=== PATIENT | female | born 1950 | race Hispanic/Latino ===

== ENCOUNTER 2019-08-17 07:04 | Day surgery (SDC) | payer OTHER ==
--- NOTE | 2019-08-15 16:58 | EKG ---
Test Date: 2019-08-11 Test Time: 16:32:55 [employer]: ED MEASUREMENT RESULTS: Intervals: Rate: 57 CA: 170 QRSD: 98 QT: 412 QTc: 401 [place]: P: 41 CA: 170 QRS: 10 T: 51 INTERPRETIVE STATEMENTS: Sinus bradycardia Inferior infarct, age undetermined Cannot rule out Anterior infarct, age undetermined Abnormal ECG No previous ECG available for comparison Electronically Signed On 08-15-19 16:55:49 CDT by Zachary Samuel
[2019-08-17] MEDS ORDERED: NA CHLORIDE 0.9% 1,000 ML ONE ×2 (07:07→07:20)
[2019-08-17] MEDS ORDERED: LIDOCAINE 2% MPF 5 ML VIAL ONE (07:18)
[2019-08-17] MEDS ORDERED: MIDAZOLAM HCL 2 MG/2 ML INJ ONE (07:18)
[2019-08-17] MEDS ORDERED: PROPOFOL 200 MG/20 ML VIAL IV ONE (07:18)
[2019-08-17] MEDS ORDERED: FENTANYL CITR 100 MCG/2 ML ONE (07:18)
[2019-08-17] MEDS: LIDOCAINE 1% W/EPI 1:100,000 MDV 20 ML VIAL ONE ×2 (07:44→08:19)
[2019-08-17] MEDS ORDERED: ONDANSETRON 4 MG/2 ML VIAL ONE (08:37)
[2019-08-17] MEDS ORDERED: KETOROLAC 30 MG/ML INJ ONE (08:38)
[2019-08-17 10:48] VITALS: BP 129/54; TEMP 97; O2SAT 98
--- NOTE | 2019-08-17 20:15 | OP ---
Date of Procedure: 08/17/2019 Surgeon: Sammi Gallardo MD Preoperative Diagnoses: Postmenopausal bleeding. Postoperative Diagnosis: Postmenopausal bleeding, endometrial polyps, and leiomyomata. Procedures Performed: Hysteroscopy, D and C, polypectomy, and myomectomy with Symphion device. Anesthesia: MAC plus paracervical block. Specimens: Polyps and endometrial curettings. Complications: No complications. Drains: No drains. Condition: Stable. Findings: A small anterior wall polyp, a large posterior wall polyp about 2 cm. Rest of the myomata of the fundus calcified. Both tubal ostia were visualized. Endometrium unremarkable and atrophied. Adequate sampling was performed. The polyp on the anterior wall and the posterior linares were taken down. The myomata were attempted to be resected, but the calcification made it technically difficul t and so they were left in place after partial removal. Indication: The patient is a 69-year-old, presented with bleeding. Evaluated with transvaginal ultr asound, thickened endometrium found. Consented for endometrial cavity evaluation and sampling to rul e out atypia or malignancy. She was consented and brought to the hospital. Medical clearance was do ne with Dr. Maki and Dr. Edwards. Description Of Procedure: After informed consent was verified, she was taken back to the OR, placed in supine fashion on the table. After MAC was given, she was placed in a dorsal lithotomy position. Pelvic exam was performed. Cervix appeared flush with the vagina. Betadine prep x3 was done after exposing with a speculum. Anterior lip grasped with single-tooth tenaculum after injecting with 1% l idocaine mixed with 1:100,000 epinephrine 10 cc at the 12 o'clock position and 5 cc each at 4 and 8 o 'clock positions of the cervicovaginal junction for a paracervical block. Diagnostic SlimLine hyster oscope used for hysteroscopy first after finding the findings as dictated above. The Symphion on was opened up. The mean arterial pressure was 72 mmHg. The set pressure was at 80 mmHg and started to use the Symphion. The working element was introduced through the Symphion scope and after Symphion s cope was introduced into the uterine cavity, the polyps were removed. Then, the myomata was attempte d to be removed as dictated above in the findings. Adequate sampling was performed. Posterior wall was scraped adequately. Anterior wall atrophic and it was very difficult to curette the endometrium even with the Symphion working element. There was no fluid deficit. Normal saline was used for distention. EBL minimal. All the instrument s were removed. Instrument, needle, and sponge counts were done and were correct at the end of the c ase. Patient tolerated the procedure well. She is 1 week follow up with me for path review. ARJUN/DEON Voice ID: [id number] Report ID: [id number]
== END 2019-08-17 10:20 | disposition home or self-care (01) ==
LOC: OR 07:04
PROVIDERS: ATTEND Obstetrics & Gynecology
PROC: 0UJD8ZZ Inspection of Uterus and Cervix, Via Natural or Artificial Opening Endoscopic (ICD-10-PCS; 2019-08-17)
PROC: 0UDB7ZX Extraction of Endometrium, Via Natural or Artificial Opening, Diagnostic (ICD-10-PCS; principal; 2019-08-17 08:30)
DX: N95.0 Postmenopausal bleeding (principal); N84.0 Polyp of corpus uteri; D25.9 Leiomyoma of uterus, unspecified; E11.9 Type 2 diabetes mellitus without complications; I10 Essential (primary) hypertension; E03.9 Hypothyroidism, unspecified; E78.00 Pure hypercholesterolemia, unspecified; Z80.3 Family history of malignant neoplasm of breast; Z83.3 Family history of diabetes mellitus; Z82.3 Family history of stroke; Z82.49 Family history of ischemic heart disease and other diseases of the circulatory system
CPT/HCPCS: 93005; 82962 ×2; 88305; 58558; J2704; J2250; J3010; J7030 ×2; J2405